=== PATIENT | female | born 1995 | race Caucasian/White ===

== ENCOUNTER 2019-05-03 09:19 | Day surgery (SDC) | payer OTHER ==
[2019-05-01 18:18] VITALS: BMI 22.8
[2019-05-03] MEDS ORDERED: PROPOFOL 20 ML ONE ×2 (09:31)
[2019-05-03] MEDS ORDERED: LIDOCAINE HCL/PF 2% SDV 5ML VIAL ONE ×2 (09:31→09:58)
[2019-05-03 14:23] VITALS: TEMP 97.6
[2019-05-03 14:28] VITALS: BP 109/63; PULSE 83
--- NOTE | 2019-05-08 15:58 | PATH ---
Surgical Pathology Report Patient Name: GAVIN CHEN [facility]. Rec. #: [id number] /Age/Gender: 1995 (Age: 23) / F Account: [id number] Location: [facility] Taken: 05/03/2019 Received: 05/03/2019 Reported: 05/08/2019 Physicians: Jocelyn Garcia M.D. Specimen(s) Received A: RANDOM RIGHT COLON B: RANDOM TRANSVERSE COLON C: RANDOM DESCENDING COLON D: POLYPECTOMY SIGMOID COLON @20CM E: RANDOM RECTUM Clinical History Bloating, diarrhea Postoperative diagnosis: Colon polyp Final Diagnosis A. RANDOM RIGHT COLON, BIOPSY: COLONIC MUCOSA WITH FOCALLY INCREASED INTRAEPITHELIAL LYMPHOCYTES. SEE COMMENT. B. RANDOM TRANSVERSE COLON, BIOPSY: COLONIC MUCOSA WITH INCREASED INTRAEPITHELIAL LYMPHOCYTES. SEE COMMENT. C. RANDOM DESCENDING COLON BIOPSY: COLONIC MUCOSA WITH INCREASED INTRAEPITHELIAL LYMPHOCYTES. SEE COMMENT. D. SIGMOID COLON POLYP AT 20 CM, POLYPECTOMY: TUBULAR ADENOMA. E. RANDOM RECTUM, BIOPSY: COLONIC MUCOSA WITH INCREASED INTRAEPITHELIAL LYMPHOCYTES. SEE COMMENT. Comment: Increased lymphocytes and plasma cells in lamina propria and increased intraepithelial lymphocytes in surface epithelium are noted. No significant crypt distortion present. Findings are nonspecific. Differential diagnosis includes microscopic colitis, resolving infectious colitis, diverticulosis, drug, food antigens, autoimmune enteropathy, and celiac sprue. Clinical/endoscopic correlation recommended. Electronically Signed Ralf Camacho M.D. Gross Description A. Received in formalin, labeled "biopsy random right colon" is a coreas, irregular portion of soft tissue measuring 0.4 cm. in greatest dimension. The specimen is submitted in toto in one cassette. B. Received in formalin, labeled "biopsy random transverse colon" are 2 coreas, irregular portions of soft tissue averaging 0.3 cm. in greatest dimension. The specimens are submitted in toto in one cassette. C. Received in formalin, labeled "biopsy random descending colon" is a coreas, irregular portion of soft tissue measuring 0.4 cm. in greatest dimension. The specimen is submitted in toto in one cassette. D. Received in formalin, labeled "hot snare polypectomy sigmoid colon at 20 cm" are 2 coreas, irregular portions of soft tissue measuring 0.2 and 0.3 cm. in greatest dimension. The specimens are submitted in toto in one cassette. E. Received in formalin, labeled "biopsy random rectum" is a coreas, irregular portion of soft tissue measuring 0.3 cm. in greatest dimension. The specimen is submitted in toto in one cassette. 05/06/2019 [facility]05/06/2019
== END 2019-05-03 12:10 | disposition home or self-care (01) ==
LOC: FASU-ENDO 09:19
PROVIDERS: ATTEND Internal Medicine Gastroenterology
PROC: 0DBK8ZX Excision of Ascending Colon, Via Natural or Artificial Opening Endoscopic, Diagnostic (ICD-10-PCS; 2019-05-03)
PROC: 0DBL8ZX Excision of Transverse Colon, Via Natural or Artificial Opening Endoscopic, Diagnostic (ICD-10-PCS; 2019-05-03)
PROC: 0DBM8ZX Excision of Descending Colon, Via Natural or Artificial Opening Endoscopic, Diagnostic (ICD-10-PCS; 2019-05-03)
PROC: 0DBH8ZX Excision of Cecum, Via Natural or Artificial Opening Endoscopic, Diagnostic (ICD-10-PCS; 2019-05-03)
PROC: 0DBN8ZX Excision of Sigmoid Colon, Via Natural or Artificial Opening Endoscopic, Diagnostic (ICD-10-PCS; principal; 2019-05-03 10:41)
DX: D12.5 Benign neoplasm of sigmoid colon (principal); K63.89 Other specified diseases of intestine; K64.0 First degree hemorrhoids; R19.7 Diarrhea, unspecified
CPT/HCPCS: 84703; 88305-TC